=== PATIENT | male | born 1990 | race Caucasian/White ===

== ENCOUNTER 2019-12-11 16:46 | Emergency (ER) | payer OTHER, SELFPAY ==
[~2019-12-11] VITALS: Ht 185.4 cm; Wt 95.3 kg
[2019-12-11 16:49] VITALS: BP 132/87
--- NOTE | 2019-12-11 17:13 | NUR ---
29/M presents to ED, c/o itching throughout body, including head and BUE and BLE, since 12/04/2019. Pt reports exposure to pt's coworker who pt had heard had scabies. Areas of bruising noted on BUE. No burrowing on fingers, no rash noted throughout body. Pt awake and alert, skin normal color warm and dry, rr even and unlabored. Denies med hx or rx. 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
[2019-12-11 17:30] VITALS: BP 138/80
--- NOTE | 2019-12-11 17:31 | NUR ---
Patient discharged with v/s stable. Written and verbal after care instructions given and explained. Patient alert, oriented and verbalized understanding of instructions. Ambulatory with steady gait. All questions addressed prior to discharge. ID band removed. Patient advised to follow up with PMD. Rx of permethrin given. Patient educated on indication of medication including possible reaction and side effects. Opportunity to ask questions provided and answered.
== END 2019-12-11 17:31 | disposition home or self-care (01) ==
LOC: MED 16:46 → EEVIPCON 16:46 → MED 17:31
DX: F15.90 Other stimulant use, unspecified, uncomplicated (principal)
CPT/HCPCS: 99282

== ENCOUNTER 2022-04-27 08:20 | Emergency (ER) | payer OTHER ==
[2022-04-27] MEDS ORDERED: PROM118S5 PO (12:51)
[2022-04-27] MEDS ORDERED: IBUP-2213 PO (12:51)
[2022-04-27] MEDS ORDERED: BENZ-300 PO (12:51)
[2022-04-27 13:21] VITALS: BP 156/97
--- NOTE | 2022-04-27 13:21 | NUR ---
Patient discharged with v/s stable. Written and verbal after care instructions ABOUT MUSCLE PAIN AND VIRAL ILLNESS given and explained. Patient alert, oriented and verbalized understanding of instructions. Ambulatory with steady gait. All questions addressed prior to discharge. ID band removed. Patient advised to follow up with PMD. Rx of CEPACOL SORE THROAT LOZENGE, IBUPROFEN, AND PROMETHAZINE DM given. Patient educated on indication of medication including possible reaction and side effects. Opportunity to ask questions provided and answered.
== END 2022-04-27 13:21 | disposition home or self-care (01) ==
LOC: MED 08:20
DX: B34.9 Viral infection, unspecified (principal); Z20.822 Contact with and (suspected) exposure to COVID-19; M79.10 Myalgia, unspecified site
CPT/HCPCS: 99283

== ENCOUNTER 2023-11-12 17:56 | Emergency (ER) | payer OTHER ==
[~2023-11-12] VITALS: Ht 185.4 cm; Wt 107.0 kg
[~2023-11-12 17:56] MED LIST: BENZ-300 PO; IBUP-2213 PO; PROM118S5 PO
[2023-11-12 18:10] VITALS: BP 136/89; PULSE 92; RESP 18; TEMP 98; O2SAT 99
[2023-11-12] MEDS ORDERED: CIPR7.5D2 OT (18:32)
[2023-11-12] MEDS ORDERED: IBUP-2213 PO (18:32)
[2023-11-12] MEDS ORDERED: AMOX875T3 PO (18:32)
[2023-11-12 18:49] VITALS: BP 135/76; PULSE 72; RESP 14; TEMP 98; O2SAT 99
== END 2023-11-12 18:49 | disposition home or self-care (01) ==
LOC: MED 17:56
DX: H66.91 Otitis media, unspecified, right ear (principal); H60.91 Unspecified otitis externa, right ear; Z79.899 Other long term (current) drug therapy
CPT/HCPCS: 99283